=== PATIENT | female | born 1940 | race Caucasian/White ===

== ENCOUNTER 2017-12-02 07:00 | Inpatient (IN) | payer OTHER, MEDICARE ==
[~2017-12-02] VITALS: Ht 172.7 cm; Wt 84.4 kg
[2017-12-02] MEDS ORDERED: VOLTAREN-XR100 M1 PO (14:43)
[2017-12-02] MEDS ORDERED: SIMVASTATIN20 M2 PO (14:44)
[2017-12-02] MEDS ORDERED: NORVASC5 M1 PO (14:44)
[2017-12-02] MEDS ORDERED: MECLIZINE HCL25 MG PO (14:44)
[2017-12-02] MEDS ORDERED: JANUMET XR 1001 EACH PO (14:47)
[2017-12-02] MEDS ORDERED: KLOR-CON20 ME1 PO (14:47)
[2017-12-02] MEDS ORDERED: OMEPRAZOLE20 M2 PO (14:48)
[2017-12-02] MEDS ORDERED: TOPROL XL25 M1 PO (14:48)
[2017-12-02] MEDS ORDERED: DYAZIDE 37.5-21 EACH PO (14:50)
--- NOTE | 2017-12-22 10:42 | Operative Report ---
Operative/Inv Procedure Report Surgery Date: 12/22/17 Name of Procedure: Right C4/5 laminotomy, foraminotomy use of intraop xray localization Pre-Operative Diagnosis: Right C4 5 foraminal stenosis with severe right C5 radiculopathy Post-Operative Diagnosis: Same Estimated Blood Loss: less than 50ml Surgeon/Bee Raiser: Betzy ASCENCIO,EL Garnett Anesthesia: general endotracheal tube Monitors: Neurophysiologic monitoring IV Fluids: 1.5 L crystalloid Implants: None Urine Output: 200 mL via Dunn Drains: None Specimens: None Complications: None Condition: Stable Operative Indication: Patient is a 76-year-old woman with a progressive right C5 nerve root palsy with severe weakness of the right deltoid and biceps. Her imaging study shows advanced multilevel cervical spondylosis, midcervical kyphosis, and high-grade multilevel foraminal stenosis most severe on the right at C4 5 to facet arthrosis and hypertrophic changes along with uncovertebral spurring and disc bulging. In light of her worsening clinical presentation, electrodiagnostic findings which were consistent with the imaging, the patient now presents for right C4 5 laminotomy and foraminotomy for decompression of the right C5 root Operative/Procedure Note Note: Patient was brought to the operating room. After appropriate patient identification and surgical timeout, the patient had neurophysiologic monitoring leads placed and baseline recordings obtained and then underwent the smooth induction of general endotracheal anesthesia without incident. A Dunn catheter was sterilely inserted. DVT prophylaxis was utilized throughout the case. Patient was given 1 g of IV vancomycin and preoperative prophylaxis. With all tubes and lines secured, the patient was placed in Frank 3 point head fixation device and carefully turned to the prone position on gel rolls taking care to ensure that all pressure points were well-padded. The neck was fixed with the chin slightly tucked otherwise neutral. The shoulders were retracted downward with tape. Following positioning monitoring was stable. The posterior neck was widely prepped and draped in usual sterile fashion using povidone iodine solution. A small gauge spinal needle was placed superficially with 1 fingerbreadth to the right of midline and a localizing lateral cervical x -ray was obtained to confirm this to be at the level of the C5 lamina. We marked the midline skin incision with reference to the needle, which was then removed, and infiltrated with local anesthetic. Skin incision was made with a 10 blade knife. Dissection was carried down through the subcutaneous tissue with the Bovie to the ligamentum nuchae. Ligament was incised in midline and a subperiosteal dissection of the right cervical paravertebral muscles was completed in the midline avascular plane and the muscles reflected laterally. We exposed the underlying lamina and facets from approximately C4 to C6. A self-retaining retractor was placed. A Johnston 4 was placed in the presumed C4 5 facet on the right and a lateral cervical x- ray was obtained and confirmed this to be the correct level. The joint was noted to be markedly hypertrophic. We defined the lateral aspect of the lateral masses of C4 and C5 and the lateral aspect the facet. We exposed the midline spinous processes on the right leaving the interspinous ligaments and was ligamentous the muscular attachments on the left intact. We began with the Midas Gaurav and performed a laminotomy of C4 5 on the right exposing the underlying ligamentum flavum. Ligament was gently elevated and removed exposing the underlying lateral aspect of the dural sac. We then performed a foraminotomy drilling of the medial half of the C4 5 facet using combination the Midas Gaurav and further undercutting the joint and widening the foramen using a 2 and 3 mm Kerrison punch. We skeletonized the rostral aspect of the C5 and inferior aspect of the C4 pedicles were able to get a beautiful decompression of the C5 root at least along a full centimeter of the root sleeve. The Kerrison was used to further undercut the more lateral facet but we were reluctant to drill more the facet in light of her kyphosis trying to avoid the risk of of iatrogenic instability. The root was nicely decompressed circumferentially. Deepika elevator was used to palpate out the more distal foramen and showed to be fairly patent with no residual compression of the right C5 root. Monitoring was stable following a full decompression no we elected to begin closure. The wound was scoped C irrigated with bacitracin sterile saline irrigation. The patient was Valsalva to 30 mmHg with no egress of blood or CSF. A small amount of venous epidural bleeding over the root was easily controlled during the case with FloSeal and occasionally the bipolar. Closure the wound was completely dry. A small pledget of thrombin-soaked Gelfoam was placed in to the interlaminar and foraminal defect to cover the exposed dura. 500 mg of IV vancomycin powder was then instilled into the wound overall cut soft tissue and muscle surfaces. The muscle was brought to the midline and the overlying ligamentum nuchae was closed with interrupted 0 Vicryl suture. The subcutaneous tissue was closed in layers with interrupted 20 and 3-0 Vicryl suture and the skin was closed with jayda. The wound was cleaned and dried. Bacitracin and a sterile occlusive dressing was placed. Patient tolerated procedure well. She was returned to the supine position taken out of the Frank, awakened extubated and taken to PACU in stable condition. She was noted to be moving all 4 extremities at the completion of the case. All sponge, needle, and injuring counts were correct at the completion of the case 3. Neurophysiologic monitoring was stable throughout the case. Findings: Tight right C4 5 foramen secondary to hypertrophic facet changes, uncovertebral spurring, lateral disc osteophyte complex Discharge Disposition: PACU
--- NOTE | 2017-12-22 10:49 | RADIOLOGY REPORT ---
EXAMINATION: FLUOROSCOPY CERVICAL SPINE CLINICAL INFORMATION: Fluoroscopic spot views COMPARISON: X-ray cervical spine dated 10/22/2017 TECHNIQUE: 2 spot views Fluoroscopy time: 0.4 minutes DAP: 0.146 mGYcm2 FINDINGS: 4 spot view demonstrates tip of the needle projecting upon the posterior elements/spinous process C4 vertebra. Second spot view demonstrates metallic instrument projecting upon the C4 posterior spinous process. Stable grade 1 anterolisthesis C2-C3 and C3-C4 level similar to the x-rays. IMPRESSION: Intraoperative changes.
--- NOTE | 2017-12-22 14:16 | PN- Neurosurgical ---
Subjective Subjective: Post op check Awake, alert Tolerating diet without nausea Pain is well controlled at this time Objective Vital Signs and I&Os VSS, afebrile +void General: alert and oriented times three Chest: clear anteriorly bilaterally, RRR Abd: soft, good bs Ext: warm, no edema, normosensate all 4 ext, good 5/5 BRIANNA all extremities except right shoulder which is decreased but at baseline per patient, unable to fully extend RUE at shoulder Wd: dressed, dry Assessment/Plan Assessment/Plan 76yo female s/p C4-5 foraminotomy Pain management - tylenol/toradol/dilaudid prn OOB tonight with PT/nursing IS - every 10 minutes while awake ALPS dc planning for tomorrow am Core Measures Venous Thromboembolism VTE Risk Factors Surgery No Mechanical VTE Prophylaxis d/t N/A MechProphylax Ordered No VTE Pharm Prophylaxis d/t Surgical Contraindication
[2017-12-22] MEDS ORDERED: DILAUDID2 M1 PO (14:28)
--- NOTE | 2017-12-22 15:09 | Surg Short-stay <48hrs Dis Sum ---
Visit Information Visit Dates Admission Date: 12/22/17 Discharge Date: 12/23/17 Surgical Short Stay DC Summary Admission Diagnosis: Pre-Operative Diagnosis: Right C4 5 foraminal stenosis with severe right C5 radiculopathy Final Diagnosis: Same s/p foraminotomy Procedure(s): Right C4/5 laminotomy, foraminotomy use of intraop xray localization Summary/Significant Findings: Pt underwent Right C4/5 laminotomy, foraminotomy by Dr Bo and was brought to the PACU in stable condition. She stayed overnight for pain control and PT evaluation. Overnight she was able to void spontaneously, her pain was well controlled, she tolerated her diet and she was evaluated by PT and cleared for discharge home. All questions answered. Condition at Discharge: good Discharge Disposition: home or self care Discharge instructions provided to patient/family: Yes Post discharge follow-up plan: [address] Bo Copies to: Betzy ASCENCIO,Tamra Chance
[2017-12-22 15:39] VITALS: BP 138/90
[2017-12-22 18:19] VITALS: BP 128/74
[2017-12-22 20:23] VITALS: BP 131/95
[2017-12-22 22:00] VITALS: BP 129/74
[2017-12-23 02:00] VITALS: BP 136/72
[2017-12-23 06:00] VITALS: BP 128/64
--- NOTE | 2017-12-23 07:35 | PN- Neurosurgical ---
Subjective Subjective: Pt with incisional post neck pain overnight, better this am after toradol. No new neurological complaints. Objective Vital Signs and I&Os Vital Signs Date Time Temp Pulse Resp B/P B/P Pulse O2 O2 Flow FiO2 Mean Ox Delivery Rate 12/23 599 98.5 89 20 128/64 93 12/23 06 94 Room Air 12/23 0200 98.5 92 20 136/72 94 / 2316 97 Room Air 12/22 2200 97.9 91 20 129/74 95 Room Air / 2023 98.4 101 20 131/95 96 Room Air 12/22 1832 Room Air 12/22 1819 97.8 99 20 128/74 94 Room Air 12/22 1539 98.4 100 18 138/90 95 Room Air Intake & Output 12/23 0800 12/23 0000 12/22 1600 12/22 0812/22 0000 12/21 1600 Intake Total 1080 1240 Output Total 950 Balance 1080 290 Intake, IV 600 460 Intake, Oral 480 780 Number 0 Bowel Movements Output, Urine 950 Patient 84.368 kg Weight Weight Reported by Patient Measurement Method Physical Exam: AF, VSS BS 193 awake and alert, conversive and appropriate neuro exam with at least as good strenth in right deltoid and better in bicep c/ w preop remainder of exam is stable with normal power, intact sensory exam using commode, voiding on own IS to 1L only incision with min old serosanguinous stain on dressing, otherwise c,d,i flat no LE edema jake po Current Medications: Current Medications Sig/Sathish Start time Last Medication Dose Route Stop Time Status Admin Acetaminophen 650 MG Q4P PRN 12/22 1530 AC 12/22 PO 1859 Amlodipine Besylate 5 MG DAILY 12/23 899 AC PO Atorvastatin Calcium 10 MG 1700 12/22 170 AC PO Dextrose/Sodium 1,000 ML .[id number] 12/22 153 AC 12/23 Chloride IV 0523 Diclofenac Sodium 75 MG DAILY 12/23 899 AC PO Hydromorphone HCl 2 MG Q4P PRN 12/22 1530 AC 12/23 PO 0341 Insulin Human Regular 0 TIDAC/HS 12/22 1700 AC 12/22 SC 1615 Ketorolac 15 MG Q6P PRN 12/22 1530 AC 12/23 Tromethamine IV 12/25 1529 0523 Meclizine HCl 25 MG TIDPRN PRN 12/22 1400 AC PO Metoprolol Succinate 25 MG DAILY 12/23 899 AC PO Omeprazole 20 MG DAILY 12/23 899 AC PO Ondansetron HCl 4 MG Q6P PRN 12/22 1530 AC IV Potassium Chloride 20 MEQ BID 12/22 2100 AC PO Sitagliptin Phosphate 100 MG DAILY 12/23 09 AC PO Triamterene/HCTZ 1 CAP DAILY 12/23 899 AC PO Vancomycin HCl 1,000 MG 1930 12/22 1930 DC 12/22 Sodium Chloride 250 ML IV 12/22 Vancomycin HCl 1,000 MG ONCE 12/22 0000 DC Sodium Chloride 250 ML IV 12/22 2359 Assessment/Plan Assessment/Plan Pt POD1 s/p right post C4/5 laminotomy, foraminotomy for severe right C5 palsy and doing well. Neurologically intact. Plan: -toradol ok for 3-5 days only -try percocet prn as pt did not find dilaudid helpful -OOB this am -home later today if stable with services -fu with me 2 wks- wound check, staple removal -dc instructions discussed in detail with pt - no driving, no lift more than 5 lbs, cover incision occlusively for showers, no submerging incision, soft collar prn comfort -call for fever more than 101, drainage or erythema of incision, any new neuro deficit -toradol, percocet prn for dc Core Measures Venous Thromboembolism VTE Risk Factors Surgery No Mechanical VTE Prophylaxis d/t N/A MechProphylax Ordered No VTE Pharm Prophylaxis d/t Surgical Contraindication
--- NOTE | 2017-12-23 07:45 | Patient Discharge Instructions ---
Discharge Instructions General Discharge Information You were seen/treated for: Shoulder pain and weakness You had these procedures: C 4-5 foraminotomy Watch for these problems: temp>101, iincreased redness or drainage of wounds, Special Instructions: no driving, no lift more than 5 lbs, cover incision occlusively for showers, no submerging incision, soft collar prn comfort -call for fever more than 101, drainage or erythema of incision, any new neuro deficit -toradol, percocet prn for dc Diet Continue normal diet: Yes Activity Full Activity/No Limits: No Pounds, do NOT lift more than: 5 Acute Coronary Syndrome Inclusion Criteria At DC or during hospital stay patient has or had the following: ACS DIAGNOSIS No Discharge Core Measures Meds if any: Prescribed or Continued at Discharge Meds if any: NOT Prescribed or Continued at Discharge Congestive Heart Failure Inclusion Criteria At DC or during hospital stay patient has or had the following: CHF DIAGNOSIS No Discharge Core Measures Meds if any: Prescribed or Continued at Discharge Meds if any: NOT Prescribed or Continued at Discharge Cerebrovascular accident Inclusion Criteria At DC or during hospital stay patient has or had the following: CVA/TIA Diagnosis No Discharge Core Measures Meds if any: Prescribed or Continued at Discharge Meds if any: NOT Prescribed or Continued at Discharge Venous thromboembolism Inclusion Criteria VTE Diagnosis No VTE Type NONE VTE Confirmed by (Test) NONE Discharge Core Measures - Per Current guidelines, there needs to be overlap - treatment for the first 5 days of Warfarin therapy. - If discharged on Warfarin prior to 5 days of - overlap therapy, the patient will need to be - assessed for post discharge needs including - *Post discharge parental anticoagulation - *Warfarin and/or parental anticoagulation education - *Follow up date to check INR post discharge At least 5 days overlap therapy as Inpatient No Meds if any: Prescribed or Continued at Discharge Note: Overlap Therapy is Warfarin and Anticoagulant Meds if any: NOT Prescribed or Continued at Discharge
[2017-12-23] MEDS ORDERED: PERCOCET 5-3251 EACH PO (07:48)
[2017-12-23] MEDS ORDERED: KETOROLAC TROME10 M1 PO (07:48)
[2017-12-23 08:22] VITALS: BP 128/64
== END 2017-12-23 10:54 | DRG 517 ==
LOC: SDA 12-22 00:54 → ENRESERV 12-22 13:57 → ENTRNSPT 12-22 15:11 → 2NB 12-22 15:21 → CMPTRNSPT 12-22 15:31 → ENPENDDIS 12-23 08:42 → ENTRNSPT 12-23 10:39 → EDTRNSPTSTS 12-23 10:50 → 2NB 12-23 10:54 → CMPTRNSPT 12-23 11:08
PROC: 01N10ZZ Release Cervical Nerve, Open Approach (ICD-10-PCS; principal; 2017-12-22)
DX: M48.02 Spinal stenosis, cervical region (principal); M54.12 Radiculopathy, cervical region
CPT/HCPCS: 2NBSP; 36415; 72020; 97116-GO; 97161-GP; C9290; J1815; J2405; J3370; J3490; J7040; J7042